=== PATIENT | female | born 1980 | race Caucasian/White ===

== ENCOUNTER 2017-07-07 07:30 | Emergency (ER) | payer MEDICAID ==
[~2017-07-07] VITALS: Ht 167.6 cm; Wt 95.7 kg
[2017-07-07 08:00] LABS: URINE BLOOD 3+ (NEG)
[2017-07-07 08:01] LABS: URINE BILIRUBIN - DIPSTICK NEGATIVE (NEG)
[2017-07-07 08:06] LABS: HEMOGLOBIN 17.2 g/dL (12.2-16.2); LYMPH # 2.1 K/mm3 (0.7-4.5); LYMPH % 20.5 % (10-50.0)
--- NOTE | 2017-07-07 08:19 | Emergency Room Report ---
History of Present Illness Time Seen by MD Shay Presenting Problem in Triage Pt arrived:Walked Presenting Problem:PATIENT STATES SHE HAS BEEN VOMITING SINCE 2299 YESTERDAY. STATES SHE ATE THE USUAL FOOD FOR HER YESTERDAY, INCLUDING PIZZA CUPCAKE BOLOGNA SANDWICH ETC. ENDORSING ABDOMINAL PAIN 8/10 EPIGASTRIC AREA. Onset of symptoms date/time:07/06/1711/17/2299 or onset unknown for: Treatment Prior to Arrival: [place] [facility] Provided by: Sepsis Risk Assessment: Temp: 97.9 B/P: 140/80 MAP: 106 Pulse: 78 Resp: 20 Recent fever? N Clinical Suspician of Infection? N Mental Status: 1 - Regular (Normal Baseline) Sepsis Risk:Low Sepsis Risk Have you (or family members/close friends) recently traveled outside the [place]? N If Yes, where/when: Have you had exposure to infectious disease within the past month? TB? Other? Specify: Patient with diffuse cramping, vomiting bilious emesis, green, watery stools today. No fever or chills. No blood from above or below. Has had sharp, intermittent left flank pain and urinary pressure for the past two days with hx of calculi. She does not have a urologist. No hematuria. Onset of flank pain predates onset of menses. She denies hematuria. Urine sample obtained today was a clean catch while menstruating. LMP now. She reports a hx of alternating chronically between loose stools and constipation, with CT scan done one year ago in [place], [place], which she states was c/w colitis. She has multiple aunts with "bowel problems" but the patient denies any diagnosis of IBD, UC, or Crohn' s disease. She has no flu sx. ALLERGIES Coded Allergies: tramadol (Intermediate, WELPS 07/07/17) Home Medications Reported Medications No Known Home Medications History Medical History General CAD? No Angina: No CT: No Hypertension? No Hyperlipidemia? No CHF? No DVT? No PE? No COPD? Yes Asthma? Yes Anemia? No GERD? No Gastric ulcers? No GI Bleed? No Hernia? No Thyroid Problems? No Hypothyroidism? No CVA? No Seizures? No Diabetes? No Renal Insuffiency? No End Stage Renal Disease? No UTI? Yes Stones? No BPH? No GB Disease: No Nephritic Syndrome? No Asplenia? No Hepatitis? No Sickle Cell Disease? No Arthritis? No Migraines? No Cataracts? No Glaucoma? No MRSA? No HIV? No TB? No Anxiety? Yes Depression? No Cancer? No More? 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 Physical Exam Vital Signs Vital Signs Date Time Temp Pulse Resp B/P Pulse O2 O2 Flow FiO2 Ox Delivery Rate 07/07 0924 78 20 142/68 100 07/07 0803 78 20 140/80 100 07/07 0736 97.9 74 20 147/86 97 General Appearance normal appearance, WD/WN, no apparent distress Eye Exam - bilateral eye normal exam, bilateral eye PERRL, bilateral eye EOMI Neck normal inspection, non-tender, supple, full range of motion Respiratory Status Yes: trachea midline, chest symmetrical, non tender chest. No: respiratory distress, tender on palpation, use of accessory muscles, pain on inspiration, pain on expiration, productive cough, non productive cough. Lung Sounds bilateral: normal breath sounds, decreased breath sounds. Cardiovascular normal exam, regular rate/rhythm, no peripheral edema, no gallop, no JVD, no murmur, no rub, normal peripheral pulses Gastrointestinal normal bowel sounds, normal exam, non tender, soft, no organomegaly, no pulsatile mass, no guarding, no rebound Back no vertebral tenderness, bowel/bladder continent, gait normal, CVA tenderness (L), strt leg raising(L)-NML, strt leg raising(R)-NML Extremities normal range of motion Neurologic alert, normal exam, no motor/sensory deficits, oriented x 3 Glascow Coma Scale Glascow Coma Scale Response Value EYE response: 4 Spontaneously 4 MOTOR response: 6 OBEYS 6 VERBAL response: 5 Oriented & Converses 5 Total 15 Skin intact, normal color, warm/dry (good turgor) Medical Decision Making LABS/Meds/Orders Pt receiving controlled substance in ED? No (declines pain meds) Results/Orders Laboratory Tests 07/07/17 0750: Sodium 140, Potassium 3.5, Chloride 103, Carbon Dioxide 26, BUN 7, Creatinine 0.9, Estimated Creat Clear 128, Estimated GFR (MDRD) 70, Glucose 133 H, Calcium 8.9, Total Bilirubin 0.3, AST 15, ALT 29, Alkaline Phosphatase 123 H, Total Protein 7.9, Albumin 4.0, Globulin 3.9 H, Albumin/Globulin Ratio 1.0 L, Amylase 56, Lipase 167, WBC 10.0, RBC 5.39, Hgb 17.2 H, Hct 52.0 H, MCV 96.4, RDW 12.8, Plt Count 350, MPV 7.6, Gran % 74.3, Gran # 7.5, Lymphocytes % 20.5, Monocytes % 4.0, Eosinophils % 0.9, Basophils % 0.2, Lymphocytes # 2.1, Monocytes # 0.4, Eosinophils # 0.1, Basophils # 0.0, PUBS MCHC 33.1, MCH 31.9 H , Urine Color RED, Urine Appearance CLOUDY, Urine pH 6.5, Ur Specific T[place]ill 1.020, Urine Protein 1+ H, Urine Ketones NEGATIVE, Urine Blood 3+ H, Urine Nitrate NEGATIVE, Urine Bilirubin NEGATIVE, Urine Urobilinogen 0.2, Ur Leukocyte Esterase TRACE H, Urine RBC 20-50, Urine WBC 3-5, Ur Squamous Epith Cells 3-5, Urine Bacteria 1+, Hyaline Casts OCC, Urine Glucose NEGATIVE Current Medication Orders Sig/Cory Start time Last Medication Dose Route Stop Time Status Admin Ondansetron HCl 4 MG ONCE ONE 07/07 930 DC 07/07 IV 07/07 931 0927 Ondansetron HCl 0 .STK-MED ONE 07/07 927 DC .ROUTE Promethazine HCl 6.25 MG ONCE ONE 07/07 830 DC 07/07 IV 07/07 0831 0825 Sodium Chloride 25 ML ONCE ONE 07/07 830 DC 07/07 IV 07/07 0844 0826 Promethazine HCl 0 .STK-MED ONE 07/07 823 DC .ROUTE Ondansetron HCl 0 .STK-MED ONE 07/07 757 DC .ROUTE Ondansetron HCl 4 MG ONCE ONE 07/07 745 DC 07/07 IV 07/07 746 0759 Sodium Chloride 10 ML PRN PRN 07/07 745 AC IV 07/08 744 Sodium Chloride 1,000 ML .Q1H1M 07/07 745 DC 07/07 IV 07/07 845 0802 Sodium Chloride 10 ML PRN PRN 07/07 745 AC IV 07/08 745 Orders Procedure Date/time Status DIET-NOTHING BY MOUTH 07/07 L Active URINALYSIS/COMPLETE 07/07 746 Complete URINE 07/[address] ABD/PELVIS REQ 07/07 745 Complete IV SALINE LOCK 07/07 745 Active LIPASE 07/07 745 Complete CBC WITH AUTO DIFF 07/07 745 Complete CHEM 12 PROFILE 07/07 745 Complete AMYLASE 07/07 745 Complete XRAY/CT/US XRAY/CT/US CT abdomen, pelvis CT interpretation by reviewed by me Time results known: 940 CT Results abnormal, diverticulosis; possible gall bladder density. Progress ED Progress Notes 1 Date 07/07/17 Time 0942 Comment Zofran and Phenergan for emesis; feeling better, will d/c when taking PO fluids. ED Progress Notes 2 Date 07/07/17 Time 945 Comment Keeping down PO liquids Departure Departure Time of Disposition 941 Disposition DC Home or Self Care(routine) Clinical Impression Primary Impression: Vomiting Qualifiers: Vomiting type: unspecified Vomiting Intractability: non-intractable Nausea presence: with nausea Qualified Code: R11.2 - Nausea with vomiting, unspecified Secondary Impressions: Diverticulosis large intestine w/o perforation or abscess w/bleeding Condition STABLE Referrals TONYA GREER Patient Instructions Clear Liquid Diet, DI for Vomiting -- Adult Additional Instructions Clear liquids overnight, Rx Zofran, see family doctor in one to two days for recheck Prescriptions Current Visit Scripts Ondansetron (Zofran 4MG Odt) 4 MG PO Q6HP PRN NAUSEA AND VOMITING #10 ODT ED Critical Care Critical Care No at 0946
--- OUTSIDE RECORDS SUMMARY | 2017-07-07 08:48 | External Medical Summary Rpt ---
Author Author TREPRESTON Lake, [employer] Address Unknown Phone Unavailable Results Amylase [Enzymatic activity/volume] in Serum or Plasma Observa Value Referen Units Interpr Notes Date tion ce etation Range Amylase 25 - 115 U/L Normal No Jul 07 [Enzymati informati 2017 7:50 c on in AM activity/ source volume] data in Serum or Plasma Comprehensive metabolic 2000 panel in Serum or Plasma Observa Value Referen Units Interpr Notes Date tion ce etation Range Albumin/G 1.1 - 1.8 No Low No Jul 07 lobulin informati informati 2016 7:50 [Mass on in on in AM ratio] in source source Serum or data data Plasma Albumin 3.4 - 5.0 gm/dL Normal No Jul 07 [Mass/vol informati 2016 7:50 ume] in on in AM Serum or source Plasma data Alkaline 46 - 116 U/L High No Jul 07 phosphata informati 2017 7:50 se on in AM [Enzymati source c data activity/ volume] in Serum or Plasma Bilirubin 0.2 - 1.0 mg/dL Normal No Jul 07 .total informati 2016 7:50 [Mass/vol on in AM ume] in source Serum or data Plasma Urea 7 - 18 mg/dL Normal No Jul 07 nitrogen informati 2016 7:50 [Mass/vol on in AM ume] in source Serum or data Plasma Calcium 8.5 - mg/dL Normal No Jul 07 [Mass/vol 10.1 informati 2017 7:50 ume] in on in AM Serum or source Plasma data Chloride 98 - 107 mmoL/L Normal No Jul 07 [Moles/vo informati 2016 7:50 lume] in on in AM Serum or source Plasma data Carbon 21.0 - mmoL/L Normal No Jul 07 dioxide, 32.0 informati 2017 7:50 total on in AM [Moles/vo source lume] in data Serum or Plasma Creatinin 0.55 - mg/dL Normal No Jul 07 e 1.02 informati 2017 7:50 [Mass/vol on in AM ume] in source Serum or data Plasma Creatinin 50 - 200 ML/MIN Normal No Jul 07 e renal informati 2016 7:50 clearance on in AM source predicted data by Cockcroft -Gault formula Estimated 59- ML/MIN No REFERENCE Jul 07 informati RANGE: 2017 7:50 glomerula on in >60 AM r source ML/MIN/1. filtratio data 73 SQUARE n rate METERSIf (GF this patient is -A merican, then multiply theresult by 1.210. Globulin 1.3 - 3.2 gm/dL High No Jul 07 [Mass/vol informati 2016 7:50 ume] in on in AM Serum source data Glucose 74 - 106 mg/dL High Jul 07 [Mass/vol informati 2016 7:50 ume] in on in AM Serum or source Plasma data Potassium 3.5 - 5.1 mmoL/L Normal No Jul 072016 7:50 [Moles/vo on in AM lume] in source Serum or data Plasma Sodium 136 - 145 mmoL/L Normal Jul 07 [Moles/vo informati 2016 7:50 lume] in on in AM Serum or source Plasma data Aspartate 15 - 37 U/L Normal No Jul 07 inform2016 7:50 aminotran on in AM sferase source [Enzymati data c activity/ volume] in Serum or Plasma Alanine 12 - 78 U/L Normal Jul 07 aminotran inform2016 7:50 sferase on in AM [Enzymati source c data activity/ volume] in Serum or Plasma Protein 6.4 - 8.2 gm/dL Normal No Jul 07 [Mass/vol informati 2016 7:50 ume] in on in AM Serum or source Plasma data Lipase [Enzymatic activity/volume] in Serum or Plasma Observa Value Referen Units Interpr Notes Date tion etation Range Lipase 73 - 393 U/L Normal No Jul 07 [Enzymati informati 2016 7:50 c on in AM activity/ source volume] data in Serum or Plasma CBC W Auto Differential panel in Blood Observa Value Referen Units Interpr Notes Date ti ce etation Range Basophils 0 - 0.2 K/MM3 Normal No Jul 072016 7:50 [#/volume on in AM ] in source Blood by data Automated count Basophils 0.1 - 2.0 % Normal No Jul 07 inform2016 7:50 leukocyte on in AM s in source Blood by data Automated count Eosinophi 0.0 - 0.4 K/mm3 Normal No Jul 07 ls 2016 7:50 [#/volume on in AM ] in source Blood by data Automated count Eosinophi 0.1 - % Normal No Jul 07 ls/100 12.0 inform2016 7:50 leukocyte on in AM s in source Blood by data Automated count Granulocy 1.8 - 7.8 K/mm3 Normal No Jul 07 chavo 2016 7:50 [#/volume on in AM ] in source Blood by data Automated count Granulocy 37.0 - % Normal No Jul 07 chavo/100 80.0 informati 2016 7:50 leukocyte on in AM s in source Blood by data Automated count Hematocri 37.0 - % High No Jul 07 t [Volume 47.0 2016 7:50 on in AM Fraction] source of Blood data Hemoglobi 12.2 - g/dL High No Jul 07 n 16.2 2016 7:50 [Mass/vol on in AM ume] in source Blood data Lymphocyt 0.7 - 4.5 K/mm3 Normal No Jul 07 es 2016 7:50 [#/volume on in AM ] in source Unspecifi data ed specimen by Automated count Lymphocyt 10 - 50.0 % Normal No Jul 07 es 2016 7:50 [#/volume on in AM ] in source Unspecifi data ed specimen by Automated count Erythrocy 27 - 31.2 pg High No Jul 07 te mean inform2016 7:50 corpuscul on in AM ar source hemoglobi data n [Entitic mass] Erythrocy 31.8 - g/dl Normal No Jul 07 te mean 35.4 2016 7:50 corpuscul on in AM ar source hemoglobi data n concentra tion [Mass/vol ume] by Automated count Erythrocy 82.2 - fl Normal No Jul 07 te mean 97.8 2016 7:50 corpuscul on in AM ar volume source [Entitic data volume] by Automated count Monocytes 0.1 - 1.0 K/mm3 Normal No Jul 072016 7:50 [#/volume on in AM ] in source Blood by data Automated count Monocytes 1.7 - 9.3 % Normal No Jul 07 /100 informati 2016 7:50 leukocyte on in AM s in source Blood by data Automated count Platelet 7.4 - fl Normal No Jul 07 mean 10.4 informati 2016 7:50 volume on in AM [Entitic source volume] data in Blood by Automated count Platelets 142 - 424 K/mm3 Normal No Jul 07 inform2016 7:50 [#/volume on in AM ] in source Blood data Erythrocy 4.2 - 5.4 M/mm3 Normal No Jul 07 chavo informati 2016 7:50 [#/volume on in AM ] in source Amniotic data fluid Erythrocy 11.5 - % Normal No Jul 07 te 17.5 informati 2016 7:50 distribut on in AM ion width source [Entitic data volume] by Automated count Leukocyte 4.8 - K/MM3 Normal No Jul 07 s 10.8 ati 2016 7:50 [#/volume on in AM ] in source Blood data Urinalysis dipstick W Reflex Microscopic panel in Urine Observa Value Referen Units Interpr Notes Date tion ce etation Range Appeara CLOUDY CLEAR No No No Jul 07 nce of informa informa informa 2016 Urine tion in tion in tion in 7:50 AM source source source data data data Bacteri 1+ O No No No Jul 07 a informa informa informa 2016 [Presen tion in tion in tion in 7:50 AM ce] in source source source Urine data data data sedimen t by Light microsc opy Bilirub NEGATIV NEG No No BILIRUB Jul 07 in E informa informa IN 2016 [Presen tion in tion in CONFIRM 7:50 AM ce] in source source ED WITH Urine data data by Test ICTOTES strip T Erythro 3+ NEG No Abnorma No Jul 07 cytes informa l informa 2016 [Presen tion in tion in 7:50 AM ce] in source source Urine data data Color RED YELLOW No No No Jul 07 of informa informa informa 2016 Urine tion in tion in tion in 7:50 AM source source source data data data Glucose NEG No No No Jul 07 [Mass/vol informati informati informati 2016 7:50 ume] in on in on in on in AM Urine by source source source Test data data data strip Hyaline OCC NONE #/lpf No No Jul 07 casts informa informa 2016 [Presen tion in tion in 7:50 AM ce] in source source Urine data data sedimen t by Light microsc opy Ketones NEGATIV NEG mg/dL No No Jul 07 E informa informa 2016 [Presen tion in tion in 7:50 AM ce] in source source Urine data data by Automat ed test strip Mucus TRACE NEG No Abnorma No Jul 07 [Presen informa l inform2016 ce] in tion in tion in 7:50 AM Urine source source sedimen data data t by Light microsc opy Nitrite NEGATIV NEG No No No Jul 07 E informa informa informa 2016 [Presen tion in tion in tion in 7:50 AM ce] in source source source Urine data data data by Test strip pH of 5.0 - 8.5 No Normal No Jul 07 Urine informati informati 2017 7:50 on in on in AM source source data data Protein NEG mg/dL High No Jul 07 [Mass/vol informati 2016 7:50 ume] in on in AM Urine by source Automated data test strip Erythro 20-50 0 rbc/hpf No No Jul 07 cytes informa informa 2016 [Presen tion in tion in 7:50 AM ce] in source source Urine data data sedimen t by Light microsc opy Specific 1.005 - No Normal No Jul 07 gravity 1.030 informati informati 2017 7:50 of Urine on in on in AM source source data data Epithel 3-5 0 - 5 #/hpf No No Jul 07 ial informa informa 2016 cells.s tion in tion in 7:50 AM quamous source source data data [Presen ce] in Urine sedimen t by Microsc opy high power field Urobili 0.2 NEG E.U./dL No No Jul 07 nogen informa informa 2016 [Presen tion in tion in 7:50 AM ce] in source source Urine data data by Test strip Leukocy [3 O wbc/hpf No No Jul 5 chavo wbc/hpf informa informa 2016 [#/volu ; 5 tion in tion in 7:50 AM me] in wbc/hpf source source Urine ] data data Urinalysis dipstick W Reflex Microscopic panel in Urine Observa Value Referen Units Interpr Notes Date tion ce etation Range Appeara CLOUDY CLEAR No No No Jul 07 nce of informa informa informa 2016 Urine tion in tion in tion in 7:50 AM source source source data data data Bilirub NEGATIV NEG No No BILIRUB Dec in E informa informa IN 2016 [Presen tion in tion in CONFIRM 7:50 AM ce] in source source ED WITH Urine data data by Test ICTOTES strip T Erythro 3+ NEG No Abnorma No Jul 07 cytes informa l informa 2016 [Presen tion in tion in 7:50 AM ce] in source source Urine data data Color RED YELLOW No No No Jul 07 of informa informa informa 2016 Urine tion in tion in tion in 7:50 AM source source source data data data Glucose NEG No No No Jul 07 [Mass/vol informati informati informati 2016 7:50 ume] in on in on in on in AM Urine by source source source Test data data data strip Ketones NEGATIV NEG mg/dL No No Jul 07 E informa informa 2016 [Presen tion in tion in 7:50 AM ce] in source source Urine data data by Automat ed test strip Mucus TRACE NEG No Abnorma No Jul 07 [Presen informa l informa 2016 ce] in tion in tion in 7:50 AM Urine source source sedimen data data t by Light microsc opy Nitrite NEGATIV NEG No No No Jul 07 E informa informa informa 2016 [Presen tion in tion in tion in 7:50 AM ce] in source source source Urine data data data by Test strip pH of 5.0 - 8.5 No Normal No Jul 07 Urine informati informati 2016 7:50 on in on in AM source source data data Protein NEG mg/dL High No Jul 07 [Mass/vol informati 2016 7:50 ume] in on in AM Urine by source Automated data test strip Specific 1.005 - No Normal No Jul 07 gravity 1.030 informati informati 2016 7:50 of Urine on in on in AM source source data data Urobili 0.2 NEG E.U./dL No No Jul 07 nogen informa informa 2016 [Presen tion in tion in 7:50 AM ce] in source source Urine data data by Test strip Choriogonadotropin.beta subunit [Units] in 24 hour Urine Observa Value Referen Units Interpr Notes Date tion ce etation Range Choriogon NEG No No Jessica Jul 07 adotropin informati informati 2016 7:50 .beta on in on in AM subunit source source [Units] data data in 24 hour Urine
--- OUTSIDE RECORDS SUMMARY | 2017-07-07 08:48 | External Medical Summary Rpt | CCD ---
Demographics Preferred Language Nepali Marital Status Unknown Evangelical Affiliation Unknown Race Unknown Ethnic Group Unknown Author Author , JOHN LOPEZ Address Unknown Phone Immunization No patient found.
--- OUTSIDE RECORDS SUMMARY | 2017-07-07 08:48 | External Medical Summary Rpt | CCD ---
Demographics Preferred Language German Marital Status Unknown Oriental Orthodox Affiliation Unknown Race Unknown Ethnic Group Unknown Author Author , JOHN LOPEZ Address Unknown Phone Immunization No patient found.
--- OUTSIDE RECORDS SUMMARY | 2017-07-07 08:48 | External Medical Summary Rpt | CCD ---
Author Author [employer] Address Unknown Phone Unavailable Purpose Continuity of Care Document - through 2016
--- OUTSIDE RECORDS SUMMARY | 2017-07-07 08:48 | External Medical Summary Rpt | CCD ---
Author Author , JOHN LOPEZ Address Unknown Phone [email or web address] Purpose Continuity of Care Document - 11-21-2016 through 2016 Problems Code Diagnosis DOS Provider Status J18.9 PNEUMONIA, 11-21-2016 UNSPECIFIED ORGANISM J44.9 CHRONIC 11-21-2016 OBSTRUCTIVE PULMONARY DISEASE, UNSPECIFIED R09.02 HYPOXEMIA 11-21-2016 Z72.0 TOBACCO USE 11-21-2016 Results Labs Lab Lab Date Result Refere Interp Status Commen Order Detail nces retati t Range on Urine test (07-07-2017 07:50) Urine = NEG complet pregnan 017 NEGATIV ed cy test 07:50 E Comment: Jessica Urinalysis with microscopy (07-07-2017 07:50) Urine CLOUDY CLEAR complet appeara 017 CLOUDY ed nce 07:50 L determi nation Bacteri 1+ 1+ L O complet a 017 ed detecti 07:50 on in urine sedimen t by Urine NEGATIV NEG complet total 017 E ed bilirub 07:50 NEGATIV in E L detecti on by test Comment: BILIRUBIN CONFIRMED WITH ICTOTEST Urine 3+ 3+ L NEG complet blood 017 ed detecti 07:50 on Urine RED RED YELLOW complet color 017 L ed 07:50 Glucose = NEG complet ur 017 NEGATIV ed test 07:50 E strip Hyaline OCC OCC NONE complet casts 017 L ed detecti 07:50 #/lpf on in urine sedimen Urine NEGATIV NEG complet ketones 017 E ed 07:50 NEGATIV detecti E L on by mg/dL automat ed chavo Mucus TRACE NEG complet detecti 017 TRACE L ed on in 07:50 urine sedimen t by lig Urine NEGATIV NEG complet nitrite 017 E ed 07:50 NEGATIV detecti E L on by test strip Urine = 6.5 5.0-8.5 complet pH 017 ed 07:50 Urine 1 + NEG complet protein 017 mg/dL ed 07:50 measure ment by automat ed t Erythro 20-50 0 complet cytes 017 20-50 L ed detecti 07:50 on in rbc/hpf urine sedimen t Urine = 1.020 1.005-1 complet specifi 017 .030 ed c 07:50 gravity measure ment [place] 3-5 3-5 0-5 complet s 017 L ed epithel 07:50 #/hpf ial cells detecti on in u Urine 0.2 0.2 NEG complet urobili 017 L ed nogen 07:50 E.U./dL detecti on by test str Urine 3 - 5 O complet leukocy 017 wbc/hpf ed chavo 07:50 count (number /volume ) CBC w auto diff (07-07-2017 07:50) Automat = 0.0 0-0.2 complet ed 017 K/MM3 ed blood 07:50 basophi l count (count/ vo Baso % = 0.2 % 0.1-2.0 complet 017 ed 07:50 Automat = 0.1 0.0-0.4 complet ed 017 K/mm3 ed blood 07:50 eosinop hil count Automat = 0.9 % 0.1-12. complet ed 017 0 ed blood 07:50 eosinop hils/10 0 leukocy t Blood = 7.5 1.8-7.8 complet granulo 017 K/mm3 ed cytes 07:50 automat ed count (numb Granulo = 74.3 37.0-80 complet cyte 017 % .0 ed percent 07:50 age Blood = 52.0 37.0-47 complet hematoc 017 % .0 ed rit 07:50 (volume fractio n) Blood = 17.2 12.2-16 complet hemoglo 017 g/dL .2 ed bin 07:50 measure ment (mass/v olum Absolut = 2.1 0.7-4.5 complet e 017 K/mm3 ed lymphoc 07:50 yte count Lymphoc = 20.5 10-50.0 complet yte 017 % ed count, 07:50 blood, automat ed Mean = 31.9 27-31.2 complet corpusc 017 pg ed ular 07:50 hemoglo bin ([facility]) determ Automat = 33.1 31.8-35 complet ed 017 g/dl .4 ed erythro 07:50 cyte mean corpusc ular h Automat = 96.4 82.2-97 complet ed 017 fl .8 ed erythro 07:50 cyte mean corpusc ular v Absolut = 0.4 0.1-1.0 complet e 017 K/mm3 ed monocyt 07:50 e count [place] % = 4.0 % 1.7-9.3 complet 017 ed 07:50 Automat = 7.6 7.4-10. complet ed 017 fl 4 ed blood 07:50 platele t mean volume khurram Blood = 350 142-424 complet platele 017 K/mm3 ed t count 07:50 Red = 5.39 4.2-5.4 complet blood 017 M/mm3 ed cell 07:50 count Automat = 12.8 11.5-17 complet ed 017 % .5 ed erythro 07:50 cyte distrib ution width Blood = 10.0 4.8-10. complet leukocy 017 K/MM3 8 ed chavo 07:50 count (number /volume ) Amylase ser/plas (07-07-2017 07:50) Amylase = 56 25-115 complet 017 U/L ed ser/nabeel 07:50 s Comprehensive metabolic panel (07-07-2017 07:50) Serum = 4.0 3.4-5.0 complet or 017 gm/dL ed plasma 07:50 albumin measure ment (mas Serum = 123 46-116 complet or 017 U/L ed plasma 07:50 alkalin e phospha tase khurram Serum = 0.3 0.2-1.0 complet or 017 mg/dL ed plasma 07:50 total bilirub in measure m Serum = 7 7-18 complet or 017 mg/dL ed plasma 07:50 urea nitroge n measure men Serum = 8.9 8.5-10. complet or 017 mg/dL 1 ed plasma 07:50 calcium measure ment (mas Serum = 103 98-107 complet or 017 mmoL/L ed plasma 07:50 chlorid e measure ment (mo Carbon = 26 21.0-32 complet dioxide 017 mmoL/L .0 ed 07:50 measure ment Serum = 0.9 0.55-1. complet or 017 mg/dL 02 ed plasma 07:50 creatin ine measure ment ( Estimat = 128 50-200 complet ion of 017 ML/MIN ed creatin 07:50 ine renal clearan ce Estimat = 70 59- complet ed 017 ML/MIN ed glomeru 07:50 lar filtrat ion rate (GF Comment: REFERENCE RANGE: >60 ML/MIN/1.73 SQUARE METERS Comment: If this patient is -[place], then multiply the Comment: result by 1.210. Serum = 3.9 1.3-3.2 complet globuli 017 gm/dL ed n 07:50 measure ment (mass/v olume) Serum = 133 74-106 complet or 017 mg/dL ed plasma 07:50 glucose measure ment (mas Serum = 3.5 3.5-5.1 complet potassi 017 mmoL/L ed um 07:50 measure ment Serum = 140 136-145 complet sodium 017 mmoL/L ed measure 07:50 ment Serum = 15 15-37 complet or 017 U/L ed plasma 07:50 asparta te aminotr ansfera ALT = 29 12-78 complet (SGPT) 017 U/L ed ser/nabeel 07:50 s Protein = 7.9 6.4-8.2 complet total 017 gm/dL ed ser/nabeel 07:50 s Serum = 1.0 1.1-1.8 complet or 017 ed plasma 07:50 albumin /globul in mass ra Lipase measurement (07-07-2017 07:50) Lipase = 167 73-393 complet measure 017 U/L ed ment 07:50 Urinalysis dipstick W Reflex Microscopic panel in Urine (07-07-2017 07:50) Bacteri 1+ O complet a 017 ed [Presen 07:50 ce] in Urine sedimen t by Light microsc opy Hyaline OCC NONE complet casts 017 ed [Presen 07:50 ce] in Urine sedimen t by Light microsc opy Erythro 20-50 0 complet cytes 017 ed [Presen 07:50 ce] in Urine sedimen t by Light microsc opy Epithel 3-5 0#/hp complet ial 017 f - ed cells.s 07:50 5#/hp quamous f [Presen ce] in Urine sedimen t by Microsc opy high power field Leukocy 3-5 O complet chavo 017 wbc/hpf ed [#/volu 07:50 me] in Urine Urinalysis dipstick W Reflex Microscopic panel in Urine (07-07-2017 07:50) Appeara CLOUDY CLEAR complet nce of 017 ed Urine 07:50 Bilirub NEGATIV NEG complet in 017 E ed [Presen 07:50 ce] in Urine by Test strip Erythro 3+ NEG Abnorma complet cytes 017 l ed [Presen 07:50 ce] in Urine Color RED YELLOW complet of 017 ed Urine 07:50 Ketones NEGATIV NEG complet 017 E ed [Presen 07:50 ce] in Urine by Automat ed test strip Mucus TRACE NEG Abnorma complet [Presen 017 l ed ce] in 07:50 Urine sedimen t by Light microsc opy Nitrite NEGATIV NEG complet 017 E ed [Presen 07:50 ce] in Urine by Test strip Urobili 0.2 NEG complet nogen 017 ed [Presen 07:50 ce] in Urine by Test strip
--- OUTSIDE RECORDS SUMMARY | 2017-07-07 08:48 | External Medical Summary Rpt | CCD ---
Author Author , JOHN LOPEZ Address Unknown Phone [email or web address] Purpose Continuity of Care Document - 11-21-2016 [...] 017 K/mm3 ed monocyt 07:50 e count [place] % = 4.0 % 1.7-9.3 complet 017 [...] SQUARE METERS Comment: If this patient is -[place], then multiply the Comment: result by 1.210. [...]
--- NOTE | 2017-07-07 09:26 | RADIOLOGY REPORT PS360 ---
CT ABD PELVIS W/O CONTRAST CLINICAL INDICATION: ABD PAIN, VOMITING SINCE LAST NIGHT ORDERING PHYSICIAN: Tere Alvarez MD PATIENT AGE: 36 years COMPARISON: None TECHNIQUE: Axial images obtained with sagittal and coronal reformats. PROCEDURE: Oral Contrast: None IV Contrast: None . FINDINGS: There are mild atelectatic changes in the lung bases. The liver, spleen, and pancreas have an unremarkable unenhanced CT appearance. There is minimal nodularity of both adrenal glands nonspecific. The gallbladder is contracted there is a 2 to 3 mm hyperdense focus in the region of the cystic duct and could be due to small stone versus a vascular calcification. No renal calculi or hydronephrosis. Unremarkable appendix. No evidence of intestinal obstruction, free air, focal inflammatory change or diverticulitis. There is scattered diverticula noted within the sigmoid colon. There is a small umbilical hernia containing fat. No acute bony anomalies. IMPRESSION: 1. Possible small stone within the cystic duct. The gallbladder does appear contracted. No biliary dilatation apparent. 2. Minimal nodularity of the adrenal glands nonspecific. 3. Otherwise negative CT abdomen pelvis
[2017-07-07] MEDS ORDERED: ZOFRAN ODT4 MG PO (09:45)
[2017-07-07 10:16] VITALS: BP 142/68
== END 2017-07-07 10:17 | disposition home or self-care (01) ==
LOC: ER 07:30
PROVIDERS: Emergency Medicine
DX: R11.2 Nausea with vomiting, unspecified (principal); K57.30 Diverticulosis of large intestine without perforation or abscess without bleeding; F17.210 Nicotine dependence, cigarettes, uncomplicated; F41.9 Anxiety disorder, unspecified; J44.9 Chronic obstructive pulmonary disease, unspecified
CPT/HCPCS: J2405